=== PATIENT | male | born 1950 | race Caucasian/White ===

== ENCOUNTER 2017-04-13 19:24 | Inpatient (IN) ==
--- NOTE | 2017-04-13 19:57 | CT Report ---
Exam: CT head without intravenous contrast Clinical History: 66 years Male slurred speech, confusion Technique: Axial computed tomography images of the head/brain without intravenous contrast. The CT exam was performed using one or more of the following dose reduction techniques: Automated exposure control, adjustment of the mA and/or kV according to patient size, or use of iterative reconstruction technique. Comparison: No relevant comparisons Findings: Brain: Mild atrophy with minimal microangiopathic small vessel ischemic changes within the deep white matter. Hernandez-white matter distinction maintained. No mass effect. No intra or extra-axial hemorrhage. Ventricles: Unremarkable. No ventriculomegaly. Bones/joints: Calvarium is intact Soft tissues: Unremarkable Sinuses: No active paranasal sinus process Mastoid air cells: Unremarkable as visualized. Impression: 1. No acute intracranial abnormality PROCEDURE INTERPRETED AT [facility] DEPARTMENT OF RADIOLOGY Final Report Signed by: Belkis Hernandez MD
--- NOTE | 2017-04-13 20:06 | XRay Report ---
Portable chest Exam date: 04/13/2017 7:37 PM Indication: Chest pain, cardiomegaly Comparison: Not available Findings: Cardiomediastinal contours is top normal in size given portable projection. Chronic granulomatous changes are noted. No acute osseous abnormalities. Visualized upper abdomen demonstrates no acute pathology. Impression: No acute cardiopulmonary findings PROCEDURE INTERPRETED AT [facility] DEPARTMENT OF RADIOLOGY Final Report Signed by: Belkis Hernandez MD
--- NOTE | 2017-04-13 20:13 | Emergency Department Note ---
ILiana Emily, am scribing for, and in the presence of, Tung Gee MD 20: 04. Gerard Reyna Charles R, MD, personally performed the services described in this documentation, ascribed by Niki Gaines in my presence, and it is both accurate and complete . Arrival - Arrival Chief Complaint: Neuro Stated Complaint: stroke ED Nursing Triage Note: AMBULATORY TO ER, STATES PATIENT HAD SUDDEN ONSET OF MEMORY LOSS THAT HAPPENED AT 181. COULDNT REMEMBER WHAT DAY IT WAS OR WHERE HE WAS. STATES HE HAS PRESSURE BEHIND HIS EYES AND MAYBE MOVEMENT BUT NOT PAIN. FAMILY REPORTS HIS BP WAS ELEVATED AT HOME. PATIENT DOESNT REMEMBER ANY SYMPTOMS OR UNABLE TO RECALL WHAT OCCURRED AT HOME. DURING TRIAGE PATIENT KEEPS REPEATING "MY EYES FEEL A LITTLE PRESSURE"- HAS REPEATED 3-4 TIMES. Mode of Arrival: Ambulatory Limitations: No Limitations Source: Patient - History of Present Illness HPI Narrative: Pt is a 66 y/o male who came to ED for further evaluation of loss of memory earlier this evening. notes pt had memory loss that started at 1814, in which could not remember time and date after being in motor home this afternoon. reports pt being diaphoretic for past 3 days before sxs of today started. Pt denies chest pain, SOB or nausea at this time in ED. Pt takes Novalog 50g and sees Dr. Chris Maier & Rafaela. Onset (ago): hour(s) Consistency: constant, intermittent Severity: moderate Severity scale (1-10): 4 Quality: other Allergies/Adverse Reactions: Allergies Allergy/AdvReac Type Severity Reaction Status Date / Time cephalexin [From Keflex] Allergy Hallucinati Verified 04/13/17 19:43 ng Home Medications: Home Medications Medication Instructions Recorded Confirmed Type Aspirin [Ecotrin] 81 mg PO QAM 04/13/17 04/13/17 History Atenolol [Atenolol] 50 mg PO BID 04/13/17 04/13/17 History Multivitamin [Multivitamins] 1 each PO QAM 04/13/17 04/13/17 History Valsartan [Valsartan] 320 mg PO QAM 04/13/17 04/13/17 History Review of System - Review of System 12 point system: reviewed and no additional remarkable complaints except as stated - Review of System Constitutional: Present: diaphoresis (3 days of sweating). Absent: chills, fever, weakness Respiratory: Absent: respiratory distress Cardiovascular: Absent: chest pain, orthopnea Gastrointestinal: Absent: abdominal pain, nausea, vomiting Musculoskeletal: Absent: arm pain, neck pain Skin: Absent: rash Neurological: Absent: headache Medical,Surgical,& Family Hx - Social History Smoking Status: Never smoker Frequency of Alcohol Use: None Type of Drug Use: None Marital Status: Lives With:: Spouse Functional capacity: independent ambulation Exam Vital Signs: Vital Signs Temperature 97.2 F L 04/13/17 19:35 Pulse Rate 64 04/13/17 19:35 Respiratory Rate 20 04/13/17 19:45 Blood Pressure 176/103 04/13/17 19:35 O2 Sat by Pulse Oximetry 99 04/13/17 19:35 - General General appearance: alert, in no apparent distress - Head Head exam: Present: atraumatic, normocephalic - Eye Eye exam: Present: PERRL, EOMI - ENT ENT exam: Present: mucous membranes moist. Absent: mucous membranes dry - Neck Neck exam: Present: full ROM - Chest Chest inspection: Present: symmetric chest wall rise - Respiratory Respiratory exam: Present: normal lung sounds bilaterally. Absent: respiratory distress - Cardiovascular Cardiovascular exam: Present: regular rate, normal rhythm, normal heart sounds - Extremities Exam Extremities exam: Present: full ROM. Absent: pedal edema - Neurological Exam Neurological exam: Present: alert, oriented X3, CN II-XII intact. Absent: motor sensory deficit - Psychiatric Psychiatric exam: Present: normal affect, normal mood - Skin Skin exam: Present: warm, dry, intact, normal color. Absent: diaphoresis Course - Consultations Consultation #1: Dr. Chacon will admit the patient for Dr. Maier Time: 22:45 Results - Labs CBC & BMP: 04/13/17 20:27 04/13/17 20:27 Lab Results: I have reviewed the patients labs - Diagnostic Findings Procedure: Chest x-ray: report reviewed by me (No acute cardiopulmonary findings.), CT: report reviewed by me (Head wo con: No acute intracranial abnormality.) Critical Care Time Critical Care Time: Yes Total Critical Care Time: 30 Disposition Clinical Impression: Transient cerebral ischemia, Temporary memory loss Case discussed with: patient, patient's family Disposition: Still a Patient Condition: Stable Time of Disposition: 22:46 NIH Stroke Score - Stroke Score Initial Assessment Level of Consciousness: Alert Level of Consciousness Questions: Answers Both Correctly Level of Consciousness Commands: Obeys Both Correctly Best Gaze: Normal Visual Victoria: No Visual Loss Facial Palsy: Normal Motor - Right Arm: No Drift Motor - Left Arm: No Drift Motor - Right Leg: No Drift Motor - Left Leg: No Drift Limb Ataxia: Absent Sensory (Pin Prick): Normal Best Language: Normal Dysarthria: Normal Extinction / Inattention (Neglect): No Neglect NIH Stroke Score: 0
[2017-04-13 21:03] LABS: Basophils % 0.6 % (0.0-0.8); Eosinophils # 0.1 10*3/uL (0.0-0.87); Eosinophils % 0.9 % (0.00-10.9); Hematocrit 43.7 VOL% (42.0-52.0); Hemoglobin 15.5 GM/DL (14.0-18.0); Immature Granulocytes % 0.3 %; Immature Granulocytes Absolute 0.02 #; Lymphocytes # 1.5 10*3/uL (1.4-4.0); Lymphocytes % 21.6 % (21.2-54.2); Mean Corpuscular HGB Conc 35.5 GM/DL (32-36); Mean Corpuscular Hemoglobin 32 PG (27-34); Mean Corpuscular Volume 89.9 FL (87-102); Mean Platelet Volume 11.7 FL (9.6-12.0); Monocytes # 0.8 10*3/uL (0.11-0.8); Monocytes % 11.3 % (1.7-12.7); Neutrophils # 4.4 10*3/uL (1.4-7.4); Neutrophils % 65.3 % (38.7-73.9); Platelet Count 211 T/CUMM (130-400); Red Blood Count 4.86 MC/CUMM (3.8-5.5); Red Cell Distribution Width 12.6 % (9.3-17.3); White Blood Count 6.8 T/CUMM (4-12)
[2017-04-13 21:09] LABS: Apearance,Urine CLEAR (Clear); Bilirubin,Urine Negative (Negative); Blood, Urine Negative (Negative); Glucose,Urine (UA) Negative (Negative); Ketones,Urine Negative (Negative); Nitrite,Urine Negative (Negative); Protein,Urine Negative; Urine Color Straw (Yellow); Urine Specific Gravity 1.002 (1.001-1.035); Urine Urobilinogen < 2.0 EU/DL (0.2-1.0)
[2017-04-13 21:14] LABS: Barbiturates Screen,Urine Negative (Negative); Benzodiazepines Screen,Urine Negative (Negative); Cannabinoid Screen,Urine Negative (Negative); Opiate Screen,Urine Negative (Negative); PT Patient Result 10.5 SECS; Partial Thromboplastin Time 24.3 SECS (0-40); Phencyclidine Screen,Urine Negative (Negative)
[2017-04-13 21:35] LABS: Alanine Aminotransferase 36 U/L (16-61); Albumin 4.5 G/DL (3.4-5.0); Alkaline Phosphatase 93 U/L (45-117); Aspartate Amino Transferase 24 U/L (0-37); Blood Urea Nitrogen 14 MG/DL (7-18); Calcium 9.7 MG/DL (8.5-10.1); Glucose 101 MG/DL (74-106); Osmolality,Calculated 279.4 MOS/KG (273-304); Sodium 140 MMOL/L (136-145); Total Protein 7.7 G/DL (6.4-8.3); Troponin I Only 0.021 NG/ML (0.00-0.045)
[2017-04-13 22:33] LABS: ABG Base Excess 0.1 MMOL/L (-2.5-2.5); ABG HCO3 24.5 MMOL/L (20-26); ABG Oxygen Saturation 97.5 % (95-100); ABG PCO2 38.3 MM HG (35-48); ABG PH 7.413 (7.35-7.45); ABG PO2 89.1 MM HG (80-95); ABG TCO2 20.8 MMOL/L (23-27)
[2017-04-14] MEDS ORDERED: LACTULOSE 20 GM/30 ML UDCUP PO PRN (00:24)
[2017-04-14] MEDS ORDERED: ACETAMINOPHEN 325 MG TABLET PO PRN (00:24)
[2017-04-14] MEDS ORDERED: MORPHINE 2 MG/1 ML SYRINGE IV PRN (00:24)
[2017-04-14] MEDS ORDERED: ONDANSETRON 4 MG/2 ML VIAL IV PRN (00:24)
[2017-04-14] MEDS ORDERED: SODIUM CHLORIDE 0.9% 1,000 ML IV SCH (00:24)
[2017-04-14 02:42] LABS: Basophils % 0.5 % (0.0-0.8); Eosinophils # 0.1 10*3/uL (0.0-0.87); Eosinophils % 0.8 % (0.00-10.9); Hemoglobin 14.6 GM/DL (14.0-18.0); Immature Granulocytes % 0.3 %; Immature Granulocytes Absolute 0.02 #; Lymphocytes # 1.8 10*3/uL (1.4-4.0); Lymphocytes % 28.7 % (21.2-54.2); Mean Corpuscular HGB Conc 35.6 GM/DL (32-36); Mean Corpuscular Hemoglobin 32 PG (27-34); Mean Corpuscular Volume 89.9 FL (87-102); Mean Platelet Volume 11.9 FL (9.6-12.0); Monocytes # 0.8 10*3/uL (0.11-0.8); Neutrophils # 3.7 10*3/uL (1.4-7.4); Neutrophils % 57.7 % (38.7-73.9); Platelet Count 194 T/CUMM (130-400); Red Blood Count 4.56 MC/CUMM (3.8-5.5); Red Cell Distribution Width 12.5 % (9.3-17.3); White Blood Count 6.4 T/CUMM (4-12)
[2017-04-14 03:08] LABS: Albumin 4.1 G/DL (3.4-5.0); Bilirubin,Total 0.8 MG/DL (0.2-1.0); Magnesium 2.5 MG/DL (1.8-2.4); Osmolality,Calculated 280.3 MOS/KG (273-304); Potassium 3.7 MMOL/L (3.5-5.1); Risk Ratio 4.97; VLDL CHOLESTEROL 39.8 MG/DL
[2017-04-14 03:10] LABS: Troponin I Only 0.026 NG/ML (0.00-0.045)
--- NOTE | 2017-04-14 07:34 | Order Completion Report ---
See report scanned to EMR
--- NOTE | 2017-04-14 07:41 | XRay Report ---
XR chest 2V Indication: Shortness of breath Comparison: 13 April 2017 Findings: The heart and mediastinum are normal in size and configuration. The pulmonary vascularity is normal in caliber. Lung volumes are increased with prominent bronchial markings. Small nodular density in the left lung bases similar to previous exam. No lung infiltrates, effusions, pneumothorax or other abnormality is demonstrated. Impression: Chronic lung changes. No acute process or significant change. PROCEDURE INTERPRETED AT [facility] DEPARTMENT OF RADIOLOGY Final Report Signed by: Dr. Son Oconnor
[2017-04-14] MEDS ORDERED: ENOXAPARIN 40 MG/0.4 ML SYRINGE SUBCUT SCH (09:00)
[2017-04-14] MEDS ORDERED: VALSARTAN 160 MG TABLET PO SCH (09:00)
[2017-04-14] MEDS ORDERED: MULTIVITAMIN (CENTRUM) TABLET PO SCH (09:00)
[2017-04-14] MEDS ORDERED: DOCUSATE SODIUM 100 MG CAPSULE PO SCH (09:00)
[2017-04-14] MEDS ORDERED: ASPIRIN EC 81 MG TABLET PO SCH (09:00)
[2017-04-14] MEDS ORDERED: ATENOLOL 50 MG TABLET PO SCH (09:00)
[2017-04-14] MEDS ORDERED: PANTOPRAZOLE 40 MG VIAL IV SCH (09:00)
--- NOTE | 2017-04-14 09:16 | Family Practice History&Phys ---
Assessment and Plan (1) Carbon monoxide exposure Status: Acute Assessment and plan: 04/14/2017: Carboxyhemoglobin normal. I do not believe this is the culprit at this time Current Visit: Yes (2) Diaphoresis Status: Acute Assessment and plan: 04/14/2017: Patient is had transient episodes of this. We will check an A1c level on him although was blood sugars have been normal with the last chemistries. In addition all and concern about atypical cardiac symptoms and will get cardiology to assess him as well. Historically he is seeing Dr. west Current Visit: Yes (3) Temporary memory loss Status: Acute Assessment and plan: 04/14/2017: We will get neurology to evaluate. Lab studies and MRI studies are pending Current Visit: Yes (4) Transient cerebral ischemia Status: Acute Assessment and plan: 04/14/2017: As mentioned above we will get neurology involved Current Visit: Yes History of Present Illness Chief complaint: Sudden memory loss History of present illness: Mr. Pritchett is a 66 year old male Well-known to me. Came to the emergency department last night after having developed sudden memory loss yesterday evening while working on his motor home. States he has a memory lapse of approximately 1-1/2 hours and then suddenly on the way to the hospital he was able to "start remembering things". He had been changing a battery during which time he had the engine running and the carbon monoxide monitor went off, and side.. Admits he was nursing home outside the door but was concerned that he got carbon monoxide poisoning. He never did develop a headache or any nausea associated with this as he has had with previous carbon monoxide exposure in the past; and his carboxyhemoglobin was normal. Patient admits that he is recently been having some periods of diaphoresis and also periods of flushing. His glucose was normal at 101. Remaining lab check included a CBC, BMP INR ABGs urinalysis as well as ammonia level all of which were normal except for slight elevation of ammonia to 43. A chest x-ray revealed mild granulomatous disease otherwise negative and a CT scan of the head was negative, in addition a urine drug screen and alcohol studies were negative.. Today he is very alert and oriented. 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 Very cognitive and astute, in general. Patient denies any chest pain or shortness of breath and does not recall any palpitations. Has seen Dr. west in the past and because of his diaphoresis and vague symptoms I am going to go ahead and get him to see him today. I will do a carotid ultrasound and MRI and get some other lab studies today. We will also consult Dr. Hawk neurology. Home Medications Medication Instructions Recorded Confirmed Type Aspirin [Ecotrin] 81 mg PO QAM 04/13/17 04/13/17 History Atenolol [Atenolol] 50 mg PO BID 04/13/17 04/13/17 History Multivitamin [Multivitamins] 1 each PO QAM 04/13/17 04/13/17 History Valsartan [Valsartan] 320 mg PO QAM 04/13/17 04/13/17 History Allergies Allergy/AdvReac Type Severity Reaction Status Date / Time cephalexin [From Keflex] Allergy Hallucinati Verified 04/13/17 19:43 ng 12 point system: reviewed and no additional remarkable complaints except as stated (Except as mentioned in the history and physical.) - EENT Eyes: Absent: blurry vision, loss of vision Ears: Absent: decreased hearing Nose, mouth and throat: Absent: dysphagia - Respiratory Respiratory: Absent: dyspnea - Gastrointestinal Gastrointestinal: Absent: dysphagia Medical,Surgical,& Family Hx - Medical History Cardio: History of: Hypertension Respiratory: History of: Obstructive Sleep Apnea - Surgical History Abdominal Surgeries: Surgical HX of: Appendectomy Orthopedic Surgeries: Surgical HX of;: Orthopedic Surgery (right knee- patella repair) - Social History Smoking Status: Never smoker Frequency of Alcohol Use: None Type of Drug Use: None Exam - Constitutional Vitals: Period Temp Pulse Resp BP Sys/Mullins Pulse Ox Last 24 Hr 96.6 F-97.6 F 60-64 18-20 119-176/78-103 95-99 Exam: Generally well-developed male he is alert and oriented. Very cognitive and stable psychologically and emotionally. HEENT pupils are equal reactive to light extraocular movements intact neck is supple, trachea midline, no thyromegaly Cardiovascular rate is regular with normal sinus rhythm noted at present Lungs are clear bilaterally I do not appreciate any rales or rhonchi Abdomen soft nondistended nontender positive bowel sounds in all 4 quadrants Extremities no clubbing cyanosis or edema, bilateral radial and dorsalis pedal pulses in upper and lower extremities respectively. Neurologically totally alert present. I do not appreciate any cognitive deficits any slurred speech he has not had any visual changes. There are no peripheral lateralizing motor or sensory deficits. Nor any cerebellar findings at present. All cranial nerves are intact Results - Labs CBC & BMP: 04/14/17 02:17 04/14/17 02:17 Quality Measures - Stroke Onset of Symptoms Date: 04/13/17 Onset of Symptoms Time: 17:00
[2017-04-14 09:55] LABS: 25 Hydroxy Vitamin D Total 31.5 NG/ML; Folate 22.9 NG/ML (5.4-24.0)
--- NOTE | 2017-04-14 10:22 | Ultrasound Report ---
US carotid duplex BI Indication: AMS. Comparison: None. Technique: Multiple longitudinal and transverse real-time sonographic images of the bilateral carotid arterial systems are obtained with grayscale, spectral, and color Doppler analysis. Findings: Peak systolic velocities within the right CCA, proximal ICA, and distal ICA are 72, 89, and 61 cm/s respectively. Peak systolic velocities within the left CCA, proximal ICA, and distal ICA are 89, 55, and 57 cm/s respectively. ICA/CCA ratios on the right and left are 1.2 and 0.6 respectively. Antegrade flow demonstrated within the bilateral vertebral arteries. Grayscale imaging demonstrates mild bilateral atherosclerotic plaque. IMPRESSION: No convincing sonographic evidence of significant (50% or greater) narrowing of either cervical internal carotid artery. Indirect NASCET criteria utilized. PROCEDURE INTERPRETED AT [facility] DEPARTMENT OF RADIOLOGY Final Report Signed by: Dr Celestino Hartman
[2017-04-14 10:35] LABS: Apearance,Urine Slightly Hazy (Clear); Bilirubin,Urine Negative (Negative); Blood, Urine Negative (Negative); Glucose,Urine (UA) Negative (Negative); Ketones,Urine Negative (Negative); Mucus,Urine Occasional /LPF (Occasional); Nitrite,Urine Negative (Negative); Protein,Urine Negative; RBC,Urine <1 /HPF (0-4); Squamous Epithelial Cell,Urine Occasional /HPF (0-10); Urine Color Yellow (Yellow); Urine Specific Gravity 1.015 (1.001-1.035); Urine Urobilinogen < 2.0 EU/DL (0.2-1.0); WBC,Urine 1 /HPF (0-6)
--- NOTE | 2017-04-14 12:22 | Order Completion Report ---
See report scanned to EMR
--- NOTE | 2017-04-14 12:23 | Order Completion Report ---
See report scanned to EMR
--- NOTE | 2017-04-14 13:30 | Magnetic Resonance Report ---
MR head/brain w and wo con, MR angio head wo/w con (COW) Indication: AMS, confusion Comparison: CT brain April 13, 2017 Technique: Multiplanar magnetic resonance imaging was performed of the brain before and after the administration of 20 cc Dotarem intravenous contrast. MRA of the brain was performed before and after the administration of 20 cc Dotarem intravenous contrast. 3-D reformats provided. Findings: Moderate global volume loss present. The midline structures are nondisplaced. There is no convincing evidence of hydrocephalus. The lopez-white matter differentiation is maintained. There is no convincing evidence of acute intracranial hemorrhage or ischemia. The included orbits and their contents appear within normal limits. T2 major vascular flow voids are maintained. MRA images demonstrate no significant vessel cut off or significant narrowing within the anterior posterior intracranial arterial circulation. The bilateral posterior connecting arteries are not well-visualized. There is no significant aneurysm formation demonstrated. The right anterior cerebral artery is dominant. IMPRESSION: No acute intracranial abnormality demonstrated. Moderate global volume loss. Unremarkable MRA brain. PROCEDURE INTERPRETED AT [facility] DEPARTMENT OF RADIOLOGY Final Report Signed by: Dr Celestino Hartman
--- NOTE | 2017-04-14 16:06 | Neurology Consult Note ---
History of Present Illness History of present illness: 56 years old right-handed white gentleman with past medical history significant for hypertension, hypercholesterolemia admitted the hospital with an episode of memory loss lasted for an hour and 1/2-2 hours. Family reported that he was talking walking and doing everything fine except that he does have no recollection of the 2 hours window. His speech was fluent. There was no weakness reported as such. Never had any similar symptoms before. reported that he has quite labile blood pressure problems. He sees Dr. Russo. He has not been able to tolerate statins in the past and his triglycerides are 199 today. He did not smoke or drink alcohol. MRI of the brain is unremarkable for any acute pathology. MRA of the [place] of [place] is unremarkable. Home Medications Medication Instructions Recorded Confirmed Type Aspirin [Ecotrin] 81 mg PO QAM 04/13/17 04/13/17 History Atenolol [Atenolol] 50 mg PO BID 04/13/17 04/13/17 History Multivitamin [Multivitamins] 1 each PO QAM 04/13/17 04/13/17 History Valsartan [Valsartan] 320 mg PO QAM 04/13/17 04/13/17 History Allergies Allergy/AdvReac Type Severity Reaction Status Date / Time cephalexin [From Keflex] Allergy Hallucinati Verified 04/13/17 19:43 ng 12 point system: reviewed and no additional remarkable complaints except as stated Medical,Surgical,& Family Hx - Medical History Cardio: History of: Hypertension Respiratory: History of: Obstructive Sleep Apnea - Surgical History Abdominal Surgeries: Surgical HX of: Appendectomy Orthopedic Surgeries: Surgical HX of;: Orthopedic Surgery (right knee- patella repair) - Social History Smoking Status: Never smoker Frequency of Alcohol Use: None Type of Drug Use: None Exam - Constitutional Vitals: Period Temp Pulse Resp BP Sys/Mullins Pulse Ox Last 24 Hr 96.6 F-97.6 F 60-69 18-20 119-176/78-103 95-99 Exam: GENERAL: Patient is in no acute distress. NECK: Neck is supple. There is no JVD. No carotid bruits present. No thyroid masses. CVS: First and second heart sounds are normal. There is no S3 present. Regular rate and rhythm. RESPIRATORY: Lungs are clear to auscultation without any rales or rhonchi. ABDOMEN: Soft and non-tender. Bowel sounds are present. There is no hepatosplenomegaly. EXT: There is no palpable edema. Peripheral pulses are present. Skin: No rashes Central Nervous system: General: Alert, awake and Oriented x 3 Speech: Fluent Comprehension: Intact and normal Facial expressions: Normal Cranial Nerves: CN1/Olfactory: Normal CN II/ Optic: Normal, Visual Victoria unreliable CN III, and : CARLEY & EOMI CN V: Normal & intact CN VII: face is symmetric CNVIII: Normal CN XI/X/XI/XII: Intact and Normal Motor: Bulk and Tone is normal. Strength in the right 5/5 Strength in the left 5/5 Sensory: Grossly intact for all the modalities of PP, LT and temp sense Reflexes: 1+ and symmetrical Cerebellar function: Normal finger to nose and heel to glynn testing. Toes: Equivocal Gait: Normal heel to heel and toe to toe and tandem walk. Results - Labs CBC & BMP: 04/14/17 02:17 04/14/17 02:17 Assessment and Plan (1) Transient global amnesia Status: Acute Assessment and plan: Stop aspirin Start Plavix 75 mg p.o. daily Add Lipitor 5 mg p.o. daily Okay to go home from neuro standpoint Follow-up in 4-6 weeks Current Visit: Yes Specialty Discharge - Follow Up or Referrals Follow up with: Ubaldo Kulkarni MD [Physician] - 1 Month
[2017-04-14 16:49] VITALS: BP 123/84
--- NOTE | 2017-04-14 17:29 | Discharge Summary ---
Hospital Course - Hospital Course Hospital Course: Patient was put in hospital after having a sudden memory loss. Because of his vague symptoms I did get cardiology to see him but also had neurology evaluate him as well. Does admit that he lost his memory for about an hour and a half and was unable to give the symptomology because of this. Nonetheless we did an MRI study on him and carotid duplex as well as carotid echocardiogram. All the studies were normal and the patient remained in sinus rhythm throughout the hospitalization. It was felt like his symptoms were due to transient global ischemia. Medication changes were made and the patient was placed on Plavix as well as Lipitor. (These were new medicines) in addition was continued on valsartan atenolol and multivitamin. He is to follow-up in the clinic in the next month or so. We will also get him to see neurology follow-up as well in 1 month. He left with this understanding. His is been in the room. Voiced understanding as well as the instructions Diagnosis - Discharge Diagnosis (1) Carbon monoxide exposure Status: Resolved (2) Diaphoresis Status: Resolved (3) Temporary memory loss Status: Resolved (4) Transient cerebral ischemia Status: Resolved Specialty Discharge - Follow Up or Referrals Follow up with: Ubaldo Kulkarni MD [Physician] - 1 Month (05/23 @1030 ) Boom Maier DO [Physician] - 2 Weeks Discharge Plan - Discharge Data Disposition: Disch To Home/Self Care Condition at Discharge: Stable Activity: resume usual activities as tolerated, increase activity as tolerated Hygiene: no restrictions Weight Bearing at Discharge: weight bear as tolerated Driving: no restrictions Contact your physician if you experience:: Nausea/Vomiting - Discharge Medications New Clopidogrel [Plavix] 75 mg PO DAILY #30 tablet Atorvastatin [Lipitor] 5 mg PO BEDTIME #30 tablet Continue Valsartan 320 mg PO QAM Multivitamin [Multivitamins] 1 each PO QAM Discontinued Aspirin [Ecotrin] 81 mg PO QAM No Action Metoprolol Tartrate Tab [Lopressor Tab] 50 mg PO BID - Follow Up or Referral Follow Up: Ubaldo Kulkarni MD [Physician] - 1 Month (05/23 @1030 ) Boom Maier DO [Physician] - 2 Weeks - Forms/Instructions Exam - Constitutional Vitals: Period Temp Pulse Resp BP Sys/Mullins Pulse Ox Last 24 Hr 96.6 F-97.7 F 60-69 18-20 119-176/78-103 95-99 Discharge Results Labs on day of discharge: Labs from last 24 hours 04/14/17 04/14/17 04/14/17 04:00 03:00 02:17 WBC RBC Hgb Hct MCV MCH MCHC RDW Plt Count MPV Neut % (Auto) Lymph % (Auto) [place] % (Auto) Eos % (Auto) Baso % (Auto) Neut # (Auto) Lymph # (Auto) [place] # (Auto) Eos # (Auto) Baso # (Auto) Immature Gran % Nucleated RBC % Immature Gran # Nucleated RBCs # Immature Plt Fraction INR PT Patient/Control Mix Circ Anticoag PTT ABG pH ABG pCO2 ABG pO2 ABG HCO3 ABG Total CO2 ABG O2 Saturation ABG Base Excess Carboxyhemoglobin Sodium Potassium Chloride Carbon Dioxide Anion Gap BUN Creatinine GFR Calculation BUN/Creatinine Ratio Glucose Calculated Osmolality Calcium Magnesium Total Bilirubin AST ALT Alkaline Phosphatase Ammonia Total Creatine Kinase CK-MB (CK-2) Troponin I B-Natriuretic Peptide 60 Total Protein Albumin Globulin Albumin/Globulin Ratio Triglycerides Cholesterol LDL Cholesterol VLDL Cholesterol HDL Cholesterol Heart Disease Risk Ratio Vitamin B12 411 25-OH Vitamin D Total 31.5 Folate 22.9 Urine Color Yellow Urine Appearance Slightly hazy Urine pH 7.0 Ur Specific [place] 1.015 Urine Protein Negative Urine Glucose (UA) Negative Urine Ketones Negative Urine Blood Negative Urine Nitrate Negative Urine Bilirubin Negative Urine Urobilinogen < 2.0 H Urine Leukocytes Negative Urine RBC <1 Urine WBC 1 Ur Squamous Epith Cells Occasional Urine Mucus Occasional Ur Culture Indicated? Not indicated Urine Opiates Screen Ur Barbiturates Screen Ur Phencyclidine Scrn U Amphetamine/Methamph U Benzodiazepines Scrn U Cocaine Metab Screen U Cannabinoids Screen Serum Alcohol 04/14/17 04/14/17 04/14/17 02:17 02:17 02:17 WBC 6.4 RBC 4.56 Hgb 14.6 Hct 41.0 L MCV 89.9 MCH 32 MCHC 35.6 RDW 12.5 Plt Count 194 MPV 11.9 Neut % (Auto) 57.7 Lymph % (Auto) 28.7 [place] % (Auto) 12.0 Eos % (Auto) 0.8 Baso % (Auto) 0.5 Neut # (Auto) 3.7 Lymph # (Auto) 1.8 [place] # (Auto) 0.8 Eos # (Auto) 0.1 Baso # (Auto) 0.0 Immature Gran % 0.3 Nucleated RBC % 0.0 Immature Gran # 0.02 Nucleated RBCs # 0.00 Immature Plt Fraction 0.0 INR PT Patient/Control Mix Circ Anticoag PTT ABG pH ABG pCO2 ABG pO2 ABG HCO3 ABG Total CO2 ABG O2 Saturation ABG Base Excess Carboxyhemoglobin Sodium 141 Potassium 3.7 Chloride 106 Carbon Dioxide 27 Anion Gap 11.7 BUN 12 Creatinine 0.80 GFR Calculation 121 BUN/Creatinine Ratio 15.00 Glucose 105 Calculated Osmolality 280.3 Calcium 9.0 Magnesium 2.5 H Total Bilirubin 0.80 AST 20 ALT 33 Alkaline Phosphatase 84 Ammonia Total Creatine Kinase 62 CK-MB (CK-2) 1.4 Troponin I 0.026 B-Natriuretic Peptide Total Protein 7.0 Albumin 4.1 Globulin 2.9 Albumin/Globulin Ratio 1.4 Triglycerides 199 H Cholesterol 169 LDL Cholesterol 97.0 VLDL Cholesterol 39.8 HDL Cholesterol 34 L Heart Disease Risk Ratio 4.97 Vitamin B12 25-OH Vitamin D Total Folate Urine Color Urine Appearance Urine pH Ur Specific [place] Urine Protein Urine Glucose (UA) Urine Ketones Urine Blood Urine Nitrate Urine Bilirubin Urine Urobilinogen Urine Leukocytes Urine RBC Urine WBC Ur Squamous Epith Cells Urine Mucus Ur Culture Indicated? Urine Opiates Screen Ur Barbiturates Screen Ur Phencyclidine Scrn U Amphetamine/Methamph U Benzodiazepines Scrn U Cocaine Metab Screen U Cannabinoids Screen Serum Alcohol 04/13/17 04/13/17 04/13/17 22:15 20:27 20:27 WBC RBC Hgb Hct MCV MCH MCHC RDW Plt Count MPV Neut % (Auto) Lymph % (Auto) [place] % (Auto) Eos % (Auto) Baso % (Auto) Neut # (Auto) Lymph # (Auto) [place] # (Auto) Eos # (Auto) Baso # (Auto) Immature Gran % Nucleated RBC % Immature Gran # Nucleated RBCs # Immature Plt Fraction INR PT Patient/Control Mix Circ Anticoag PTT ABG pH 7.413 ABG pCO2 38.3 ABG pO2 89.1 ABG HCO3 24.5 ABG Total CO2 20.8 L ABG O2 Saturation 97.5 ABG Base Excess 0.1 Carboxyhemoglobin 1.1 Sodium 140 Potassium 4.0 Chloride 106 Carbon Dioxide 25 Anion Gap 13.0 BUN 14 Creatinine 0.90 GFR Calculation 113 BUN/Creatinine Ratio 15.00 Glucose 101 Calculated Osmolality 279.4 Calcium 9.7 Magnesium Total Bilirubin 0.60 AST 24 ALT 36 Alkaline Phosphatase 93 Ammonia 43 H Total Creatine Kinase CK-MB (CK-2) Troponin I 0.021 B-Natriuretic Peptide Total Protein 7.7 Albumin 4.5 Globulin 3.2 Albumin/Globulin Ratio 1.4 Triglycerides Cholesterol LDL Cholesterol VLDL Cholesterol HDL Cholesterol Heart Disease Risk Ratio Vitamin B12 25-OH Vitamin D Total Folate Urine Color Urine Appearance Urine pH Ur Specific [place] Urine Protein Urine Glucose (UA) Urine Ketones Urine Blood Urine Nitrate Urine Bilirubin Urine Urobilinogen Urine Leukocytes Urine RBC Urine WBC Ur Squamous Epith Cells Urine Mucus Ur Culture Indicated? Urine Opiates Screen Ur Barbiturates Screen Ur Phencyclidine Scrn U Amphetamine/Methamph U Benzodiazepines Scrn U Cocaine Metab Screen U Cannabinoids Screen Serum Alcohol < 15 L 04/13/17 04/13/17 04/13/17 20:27 20:27 20:27 WBC 6.8 RBC 4.86 Hgb 15.5 Hct 43.7 MCV 89.9 MCH 32 MCHC 35.5 RDW 12.6 Plt Count 211 MPV 11.7 Neut % (Auto) 65.3 Lymph % (Auto) 21.6 [place] % (Auto) 11.3 Eos % (Auto) 0.9 Baso % (Auto) 0.6 Neut # (Auto) 4.4 Lymph # (Auto) 1.5 [place] # (Auto) 0.8 Eos # (Auto) 0.1 Baso # (Auto) 0.0 Immature Gran % 0.3 Nucleated RBC % 0.0 Immature Gran # 0.02 Nucleated RBCs # 0.00 Immature Plt Fraction 0.0 INR 1.0 PT Patient/Control Mix 10.5 Circ Anticoag PTT 24.3 ABG pH ABG pCO2 ABG pO2 ABG HCO3 ABG Total CO2 ABG O2 Saturation ABG Base Excess Carboxyhemoglobin Sodium Potassium Chloride Carbon Dioxide Anion Gap BUN Creatinine GFR Calculation BUN/Creatinine Ratio Glucose Calculated Osmolality Calcium Magnesium Total Bilirubin AST ALT Alkaline Phosphatase Ammonia Total Creatine Kinase CK-MB (CK-2) Troponin I B-Natriuretic Peptide Total Protein Albumin Globulin Albumin/Globulin Ratio Triglycerides Cholesterol LDL Cholesterol VLDL Cholesterol HDL Cholesterol Heart Disease Risk Ratio Vitamin B12 25-OH Vitamin D Total Folate Urine Color Urine Appearance Urine pH Ur Specific [place] Urine Protein Urine Glucose (UA) Urine Ketones Urine Blood Urine Nitrate Urine Bilirubin Urine Urobilinogen Urine Leukocytes Urine RBC Urine WBC Ur Squamous Epith Cells Urine Mucus Ur Culture Indicated? Urine Opiates Screen Negative Ur Barbiturates Screen Negative Ur Phencyclidine Scrn Negative U Amphetamine/Methamph Negative U Benzodiazepines Scrn Negative U Cocaine Metab Screen Negative U Cannabinoids Screen Negative Serum Alcohol 04/13/17 20:27 WBC RBC Hgb Hct MCV MCH MCHC RDW Plt Count MPV Neut % (Auto) Lymph % (Auto) [place] % (Auto) Eos % (Auto) Baso % (Auto) Neut # (Auto) Lymph # (Auto) [place] # (Auto) Eos # (Auto) Baso # (Auto) Immature Gran % Nucleated RBC % Immature Gran # Nucleated RBCs # Immature Plt Fraction INR PT Patient/Control Mix Circ Anticoag PTT ABG pH ABG pCO2 ABG pO2 ABG HCO3 ABG Total CO2 ABG O2 Saturation ABG Base Excess Carboxyhemoglobin Sodium Potassium Chloride Carbon Dioxide Anion Gap BUN Creatinine GFR Calculation BUN/Creatinine Ratio Glucose Calculated Osmolality Calcium Magnesium Total Bilirubin AST ALT Alkaline Phosphatase Ammonia Total Creatine Kinase CK-MB (CK-2) Troponin I B-Natriuretic Peptide Total Protein Albumin Globulin Albumin/Globulin Ratio Triglycerides Cholesterol LDL Cholesterol VLDL Cholesterol HDL Cholesterol Heart Disease Risk Ratio Vitamin B12 25-OH Vitamin D Total Folate Urine Color Straw Urine Appearance Clear Urine pH 6.0 Ur Specific [place] 1.002 Urine Protein Negative Urine Glucose (UA) Negative Urine Ketones Negative Urine Blood Negative Urine Nitrate Negative Urine Bilirubin Negative Urine Urobilinogen < 2.0 H Urine Leukocytes Negative Urine RBC Urine WBC Ur Squamous Epith Cells Urine Mucus Ur Culture Indicated? Not indicated Urine Opiates Screen Ur Barbiturates Screen Ur Phencyclidine Scrn U Amphetamine/Methamph U Benzodiazepines Scrn U Cocaine Metab Screen U Cannabinoids Screen Serum Alcohol DS: Provider Date of admission: 04/13/17 22:47 Primary care physician: . No PCP Attending physician on admission: Boom Maier DO Consults: 04/14/17 00:24 Consult to Case Mgmt/Social Srvs [CONS] Routine Reason for Case Mgmt/Social Srvs: Discharge Planning Consult to Physician [CONS] Routine Comment: TIA, memory loss Consulting Provider: Ubaldo Kulkarni When should Consulting Provider be notified: In am Person Notified: Winnie Date Notified: 04/14/17 Time Notified: 08:40 04/14/17 09:02 Consult to Physician [CONS] Routine Comment: Consulting Provider: Discharging clinician: Boom Maier DO
--- NOTE | 2017-04-14 19:25 | Cardiology Consult Note ---
Maribell, Kayla Jc, GINO, am scribing for, and in the presence of, Sky Gregory MD 19:24. Assessment and Plan - Time spent with patient Time spent with patient: Greater than 30 minutes (Record review, assessment, and documentation) (1) Hypertension Status: Chronic Assessment and plan: 66-year-old male, followed by Dr. Russo. Was admitted with an episode of transient amnesia, carbon monoxide or carbon dioxide exposure may have contributed. No evidence of myocardial or BEAD FILLER injury. -Discussed importance of safe working environment, avoid further CO exposure. The patient had repeated episodes of moderate CO exposure. -Intermittent flushing, shakiness may warrant endocrine evaluation. At this time, suspicion for symptomatic pheochromocytoma or carcinoid is not high. I doubt this is arrhythmia -Blood pressure well controlled. Continue current regimen. -Follow-up with Dr. Russo. Call with further questions. (2) Carbon monoxide exposure Status: Resolved Assessment and plan: SEE PLAN LISTED BELOW (3) Temporary memory loss Status: Resolved Assessment and plan: SEE PLAN LISTED BELOW (4) Obstructive sleep apnea Status: Chronic Assessment and plan: SEE PLAN LISTED BELOW History of Present Illness - Data of Consult Patient: known to practice within the last 3 years Consult date: 04/14/17 Requesting Physician: Boom Maier Primary care physician: Boom Maier - Consult Narrative Reason for consult: confusion, memory loss History of present illness: WAGE CONCILIATOR: Dr. Russo Mr. Pritchett is a 66 year old WM, who is known to Dr. Russo. The patient has a history of obstructive sleep apnea, hypertension, and kidney stones. Past surgical history includes knee surgery, appendectomy, turbinectomy. Family history includes cardiac disease, prostate cancer, specifically he reports 8 uncles who of an OH at young age (40s-50s). He was last seen in the clinic with Dr. Russo 10/2016. At that time he had an echocardiogram and carotid Dopplers to evaluate a carotid bruit. Echo revealed EF of 60% with grade 1 diastolic dysfunction, moderately dilated left atrium, normal RV function, mild TR, PA pressure 40, and no effusion. Carotid study revealed less than 40% bilateral ICA stenosis with patent external carotid arteries bilaterally. The patient states he has compliantly used a CPAP for 25 years. Patient denies a lifetime history of smoking, rare alcohol use, no other drug use. He denies large amounts of caffeine intake and/or energy drinks. He denies starting new medication, particularly [id number] medications. The patient states he was at home working on his RV, he noted the CO2 alarm went off inside of the camper. He disconnected the alarm and continued working. He states he completed his task, went inside to take a shower, did some work inside his home that required him to use formulas and calculations, and recalls all of these memories. Apparently he has been told that he had a conversation with his sister in which he appeared disoriented. His talked with him and decided to take him to the emergency room for evaluation. He states he does not recall talking with the sister, with his , nor coming to the emergency room. He and his determined that there is about 1-1/2 hours that the patient cannot recall. He does report a similar episode after his knee surgery in recovery. He notes that in the last 2-3 weeks he had increased edema to the bilateral lower extremities. He reports he lost 10# from one day to the next, but associates this with an 18 hour flight from [place]. The patient denies dyspnea, chest pain, heart palpitations, or diaphoresis before or after this episode. Unfortunately he does not recall the events during this episode to relay symptomatology. CC: Boom Maier, DO - Home Medications and Allergies Home Medications: Home Medications Medication Instructions Recorded Confirmed Type Multivitamin [Multivitamins] 1 each PO QAM 04/13/17 04/13/17 History Valsartan 320 mg PO QAM 04/13/17 04/13/17 History Atorvastatin [Lipitor] 5 mg PO BEDTIME #30 tablet 04/14/17 Rx Clopidogrel [Plavix] 75 mg PO DAILY #30 tablet 04/14/17 Rx Metoprolol Tartrate Tab [Lopressor 50 mg PO BID 04/14/17 04/14/17 History Tab] Allergies/Adverse Reactions: Allergies Allergy/AdvReac Type Severity Reaction Status Date / Time cephalexin [From Keflex] Allergy Hallucinati Verified 04/13/17 19:43 ng - Constitutional Constitutional: Present: weight loss. Absent: anorexia, chills, daytime sleepiness, excessive sweating, fatigue, frequent falls, headache(s), weakness - EENT Nose, mouth and throat: Absent: headache(s) - Cardiovascular Cardiovascular: Present: edema. Absent: chest pain at rest, chest pain with activity, diaphoresis, dyspnea, dyspnea on exertion, radiating jaw, neck or arm pain, lightheadedness, palpitations - Respiratory Respiratory: Absent: cough, dyspnea, dyspnea on exertion, wheezing - Gastrointestinal Gastrointestinal: Absent: abdominal pain, change in bowel habits, coffee ground emesis, dyspepsia, hematemesis, hematochezia, melena, nausea, vomiting - Genitourinary Genitourinary: Absent: difficulty urinating - Neurological Neurological: Present: memory loss. Absent: abnormal gait, abnormal speech, behavioral changes, confusion, dizziness, frequent falls - Psychiatric Psychiatric: Absent: anxiety, depression - Endocrine Endocrine: Absent: fatigue - Hematologic/Lymphatic Hematologic/Lymphatic: Absent: easy bleeding Medical,Surgical,& Family Hx - Medical History Cardio: History of: Hypertension Respiratory: History of: Obstructive Sleep Apnea - Surgical History Abdominal Surgeries: Surgical HX of: Appendectomy Orthopedic Surgeries: Surgical HX of;: Orthopedic Surgery (right knee- patella repair) - Social History Smoking Status: Never smoker Frequency of Alcohol Use: None Type of Drug Use: None Marital Status: Lives With:: Spouse Functional capacity: independent ambulation () Physical Examination Vital Signs Temp Pulse Resp BP Pulse Ox 97.2 F L 64 18 176/103 99 04/13/17 19:35 04/13/17 19:35 04/13/17 19:35 04/13/17 19:35 04/13/17 19:35 Exam: General: Appears well with no apparent distress. Pleasant and cooperative. Appears comfortable. HEENT: PERRL, normocephalic, atraumatic. Mucous membranes moist. No jaundice noted. Conjunctiva moist and clear, sclerae anicteric. Neck: No JVD, no thyromegaly or lymphadenopathy noted. No carotid bruit appreciated. Cardiac: Regular rate and rhythm. No murmur rub or gallop. PMI is nondisplaced. Lungs: Clear to auscultation without accessory muscle use to assist the respiratory pattern. No oxygen in use. Abdomen: Soft, bowel sounds normoactive. Nontender and nondistended. No abdominal bruit or thrill noted. No masses noted. Musculoskeletal: No fluid collection. Full range of motion is noted. Extremities: No clubbing, cyanosis noted. No edema noted. Upper extremity pulses 2+. Lower extremity pulses 2+. Capillary refill less than 3 seconds. Skin: Warm and dry. No unusual lesions or rashes. No skin breakdown appreciated. Neuro: Awake, alert and oriented 3. Moves all extremities well without hemiparesis or paralysis. No essential tremor is appreciated. Result/EKG - Labs CBC & BMP: 04/14/17 02:17 04/14/17 02:17 Lab Results: I have reviewed the past 24 hour labs Labs: Laboratory Results - last 24 hr 04/13/17 04/13/17 04/13/17 20:27 20:27 20:27 WBC 6.8 RBC 4.86 Hgb 15.5 Hct 43.7 MCV 89.9 MCH 32 MCHC 35.5 RDW 12.6 Plt Count 211 MPV 11.7 Neut % (Auto) 65.3 Lymph % (Auto) 21.6 [place] % (Auto) 11.3 Eos % (Auto) 0.9 Baso % (Auto) 0.6 Neut # (Auto) 4.4 Lymph # (Auto) 1.5 [place] # (Auto) 0.8 Eos # (Auto) 0.1 Baso # (Auto) 0.0 Immature Gran % 0.3 Nucleated RBC % 0.0 Immature Gran # 0.02 Nucleated RBCs # 0.00 Immature Plt Fraction 0.0 INR PT Patient/Control Mix Circ Anticoag PTT ABG pH ABG pCO2 ABG pO2 ABG HCO3 ABG Total CO2 ABG O2 Saturation ABG Base Excess Carboxyhemoglobin Sodium Potassium Chloride Carbon Dioxide Anion Gap BUN Creatinine GFR Calculation BUN/Creatinine Ratio Glucose Calculated Osmolality Calcium Magnesium Total Bilirubin AST ALT Alkaline Phosphatase Ammonia Total Creatine Kinase CK-MB (CK-2) Troponin I B-Natriuretic Peptide Total Protein Albumin Globulin Albumin/Globulin Ratio Triglycerides Cholesterol LDL Cholesterol VLDL Cholesterol HDL Cholesterol Heart Disease Risk Ratio Vitamin B12 25-OH Vitamin D Total Folate Urine Color Straw Urine Appearance Clear Urine pH 6.0 Ur Specific [place] 1.002 Urine Protein Negative Urine Glucose (UA) Negative Urine Ketones Negative Urine Blood Negative Urine Nitrate Negative Urine Bilirubin Negative Urine Urobilinogen < 2.0 H Urine Leukocytes Negative Urine RBC Urine WBC Ur Squamous Epith Cells Urine Mucus Ur Culture Indicated? Not indicated Urine Opiates Screen Negative Ur Barbiturates Screen Negative Ur Phencyclidine Scrn Negative U Amphetamine/Methamph Negative U Benzodiazepines Scrn Negative U Cocaine Metab Screen Negative U Cannabinoids Screen Negative Serum Alcohol 04/13/17 04/13/17 04/13/17 20:27 20:27 20:27 WBC RBC Hgb Hct MCV MCH MCHC RDW Plt Count MPV Neut % (Auto) Lymph % (Auto) [place] % (Auto) Eos % (Auto) Baso % (Auto) Neut # (Auto) Lymph # (Auto) [place] # (Auto) Eos # (Auto) Baso # (Auto) Immature Gran % Nucleated RBC % Immature Gran # Nucleated RBCs # Immature Plt Fraction INR 1.0 PT Patient/Control Mix 10.5 Circ Anticoag PTT 24.3 ABG pH ABG pCO2 ABG pO2 ABG HCO3 ABG Total CO2 ABG O2 Saturation ABG Base Excess Carboxyhemoglobin Sodium 140 Potassium 4.0 Chloride 106 Carbon Dioxide 25 Anion Gap 13.0 BUN 14 Creatinine 0.90 GFR Calculation 113 BUN/Creatinine Ratio 15.00 Glucose 101 Calculated Osmolality 279.4 Calcium 9.7 Magnesium Total Bilirubin 0.60 AST 24 ALT 36 Alkaline Phosphatase 93 Ammonia 43 H Total Creatine Kinase CK-MB (CK-2) Troponin I 0.021 B-Natriuretic Peptide Total Protein 7.7 Albumin 4.5 Globulin 3.2 Albumin/Globulin Ratio 1.4 Triglycerides Cholesterol LDL Cholesterol VLDL Cholesterol HDL Cholesterol Heart Disease Risk Ratio Vitamin B12 25-OH Vitamin D Total Folate Urine Color Urine Appearance Urine pH Ur Specific [place] Urine Protein Urine Glucose (UA) Urine Ketones Urine Blood Urine Nitrate Urine Bilirubin Urine Urobilinogen Urine Leukocytes Urine RBC Urine WBC Ur Squamous Epith Cells Urine Mucus Ur Culture Indicated? Urine Opiates Screen Ur Barbiturates Screen Ur Phencyclidine Scrn U Amphetamine/Methamph U Benzodiazepines Scrn U Cocaine Metab Screen U Cannabinoids Screen Serum Alcohol < 15 L 04/13/17 04/14/17 04/14/17 22:15 02:17 02:17 WBC 6.4 RBC 4.56 Hgb 14.6 Hct 41.0 L MCV 89.9 MCH 32 MCHC 35.6 RDW 12.5 Plt Count 194 MPV 11.9 Neut % (Auto) 57.7 Lymph % (Auto) 28.7 [place] % (Auto) 12.0 Eos % (Auto) 0.8 Baso % (Auto) 0.5 Neut # (Auto) 3.7 Lymph # (Auto) 1.8 [place] # (Auto) 0.8 Eos # (Auto) 0.1 Baso # (Auto) 0.0 Immature Gran % 0.3 Nucleated RBC % 0.0 Immature Gran # 0.02 Nucleated RBCs # 0.00 Immature Plt Fraction 0.0 INR PT Patient/Control Mix Circ Anticoag PTT ABG pH 7.413 ABG pCO2 38.3 ABG pO2 89.1 ABG HCO3 24.5 ABG Total CO2 20.8 L ABG O2 Saturation 97.5 ABG Base Excess 0.1 Carboxyhemoglobin 1.1 Sodium Potassium Chloride Carbon Dioxide Anion Gap BUN Creatinine GFR Calculation BUN/Creatinine Ratio Glucose Calculated Osmolality Calcium Magnesium Total Bilirubin AST ALT Alkaline Phosphatase Ammonia Total Creatine Kinase 62 CK-MB (CK-2) 1.4 Troponin I 0.026 B-Natriuretic Peptide Total Protein Albumin Globulin Albumin/Globulin Ratio Triglycerides Cholesterol LDL Cholesterol VLDL Cholesterol HDL Cholesterol Heart Disease Risk Ratio Vitamin B12 25-OH Vitamin D Total Folate Urine Color Urine Appearance Urine pH Ur Specific [place] Urine Protein Urine Glucose (UA) Urine Ketones Urine Blood Urine Nitrate Urine Bilirubin Urine Urobilinogen Urine Leukocytes Urine RBC Urine WBC Ur Squamous Epith Cells Urine Mucus Ur Culture Indicated? Urine Opiates Screen Ur Barbiturates Screen Ur Phencyclidine Scrn U Amphetamine/Methamph U Benzodiazepines Scrn U Cocaine Metab Screen U Cannabinoids Screen Serum Alcohol 04/14/17 04/14/17 04/14/17 02:17 02:17 03:00 WBC RBC Hgb Hct MCV MCH MCHC RDW Plt Count MPV Neut % (Auto) Lymph % (Auto) [place] % (Auto) Eos % (Auto) Baso % (Auto) Neut # (Auto) Lymph # (Auto) [place] # (Auto) Eos # (Auto) Baso # (Auto) Immature Gran % Nucleated RBC % Immature Gran # Nucleated RBCs # Immature Plt Fraction INR PT Patient/Control Mix Circ Anticoag PTT ABG pH ABG pCO2 ABG pO2 ABG HCO3 ABG Total CO2 ABG O2 Saturation ABG Base Excess Carboxyhemoglobin Sodium 141 Potassium 3.7 Chloride 106 Carbon Dioxide 27 Anion Gap 11.7 BUN 12 Creatinine 0.80 GFR Calculation 121 BUN/Creatinine Ratio 15.00 Glucose 105 Calculated Osmolality 280.3 Calcium 9.0 Magnesium 2.5 H Total Bilirubin 0.80 AST 20 ALT 33 Alkaline Phosphatase 84 Ammonia Total Creatine Kinase CK-MB (CK-2) Troponin I B-Natriuretic Peptide 60 Total Protein 7.0 Albumin 4.1 Globulin 2.9 Albumin/Globulin Ratio 1.4 Triglycerides 199 H Cholesterol 169 LDL Cholesterol 97.0 VLDL Cholesterol 39.8 HDL Cholesterol 34 L Heart Disease Risk Ratio 4.97 Vitamin B12 411 25-OH Vitamin D Total 31.5 Folate 22.9 Urine Color Urine Appearance Urine pH Ur Specific [place] Urine Protein Urine Glucose (UA) Urine Ketones Urine Blood Urine Nitrate Urine Bilirubin Urine Urobilinogen Urine Leukocytes Urine RBC Urine WBC Ur Squamous Epith Cells Urine Mucus Ur Culture Indicated? Urine Opiates Screen Ur Barbiturates Screen Ur Phencyclidine Scrn U Amphetamine/Methamph U Benzodiazepines Scrn U Cocaine Metab Screen U Cannabinoids Screen Serum Alcohol 04/14/17 04:00 WBC RBC Hgb Hct MCV MCH MCHC RDW Plt Count MPV Neut % (Auto) Lymph % (Auto) [place] % (Auto) Eos % (Auto) Baso % (Auto) Neut # (Auto) Lymph # (Auto) [place] # (Auto) Eos # (Auto) Baso # (Auto) Immature Gran % Nucleated RBC % Immature Gran # Nucleated RBCs # Immature Plt Fraction INR PT Patient/Control Mix Circ Anticoag PTT ABG pH ABG pCO2 ABG pO2 ABG HCO3 ABG Total CO2 ABG O2 Saturation ABG Base Excess Carboxyhemoglobin Sodium Potassium Chloride Carbon Dioxide Anion Gap BUN Creatinine GFR Calculation BUN/Creatinine Ratio Glucose Calculated Osmolality Calcium Magnesium Total Bilirubin AST ALT Alkaline Phosphatase Ammonia Total Creatine Kinase CK-MB (CK-2) Troponin I B-Natriuretic Peptide Total Protein Albumin Globulin Albumin/Globulin Ratio Triglycerides Cholesterol LDL Cholesterol VLDL Cholesterol HDL Cholesterol Heart Disease Risk Ratio Vitamin B12 25-OH Vitamin D Total Folate Urine Color Yellow Urine Appearance Slightly hazy Urine pH 7.0 Ur Specific [place] 1.015 Urine Protein Negative Urine Glucose (UA) Negative Urine Ketones Negative Urine Blood Negative Urine Nitrate Negative Urine Bilirubin Negative Urine Urobilinogen < 2.0 H Urine Leukocytes Negative Urine RBC <1 Urine WBC 1 Ur Squamous Epith Cells Occasional Urine Mucus Occasional Ur Culture Indicated? Not indicated Urine Opiates Screen Ur Barbiturates Screen Ur Phencyclidine Scrn U Amphetamine/Methamph U Benzodiazepines Scrn U Cocaine Metab Screen U Cannabinoids Screen Serum Alcohol - Diagnostic Findings Procedure: Chest x-ray: report reviewed by me, CT: report reviewed by me, MRI: report reviewed by me - EKG EKG results: interpreted by me, sinus rhythm Quality Measures - Stroke Onset of Symptoms Date: 04/13/17 Onset of Symptoms Time: 17:00 Specialty Discharge - Follow Up or Referrals Follow up with: Ubaldo Kulkarni MD [Physician] - 1 Month (05/23 @1030 ) Boom Maier DO [Physician] - 2 Weeks Bri Reyna Attila, MD, personally performed the services described in this documentation, ascribed by Kayla Jc NP in my presence, and it is both accurate and complete .
[2017-04-14] MEDS ORDERED: ATORVASTATIN 10 MG TABLET PO SCH (21:00)
[2017-04-15] MEDS ORDERED: CLOPIDOGREL 75 MG TABLET PO SCH (09:00)
== END 2017-04-14 18:02 | disposition home or self-care (01) | DRG 69 ==
LOC: N.ED 19:24 → N.EDINP 23:20 → N.TELES 23:45
PROVIDERS: ADMIT Family Medicine; ATTEND Family Medicine